=== PATIENT | male | born 1950 | race Caucasian/White ===

== ENCOUNTER → 2018-05-16 07:37 | Outpatient (CLI) | payer OTHER ==
[2010-03-26 04:15] VITALS: BMI 23.7
[~2018-05-16 07:37] MED LIST: ASPIRIN81 MG PO; BUSPAR5 MG PO; COREG 3.1253.125 MG PO; ENTRESTO 49 MG1 EACH PO; LASIX40 MG PO; LIPITOR40 MG PO; LISINOPRIL10 MG PO; PLAVIX75 MG PO; VITAMIN B COMPL1 TAB PO
[2018-07-18 21:20] VITALS: BMI 22.3
== END | disposition home or self-care (01) ==
LOC: D.US 07:37
DX: R10.11 Right upper quadrant pain (principal); R10.31 Right lower quadrant pain

== ENCOUNTER → 2018-05-29 08:08 | Outpatient (CLI) | payer OTHER ==
[2010-03-26 04:15] VITALS: BMI 23.7
[2018-07-18 21:20] VITALS: BMI 22.3
== END | disposition home or self-care (01) ==
LOC: D.NM 08:08
DX: R10.11 Right upper quadrant pain (principal)

== ENCOUNTER 2018-06-10 06:30 | Day surgery (SDC) | payer OTHER ==
[2018-06-07 11:17] LABS: HEMATOCRIT 47.8 % (42.0-54.0); HEMOGLOBIN 16.4 g/dL (13.5-17.5); MCH 29.8 pg (26.0-34.0); MCHC 34.3 g/dL (31.0-37.0); MCV 86.9 fL (80.0-100.0); MEAN PLATELET VOLUME 10.8 fL (7.4-10.4); RBC 5.5 10x6/uL (4.20-6.10); RDW 14.9 % (11.5-14.5); WBC 8.7 10x3/uL (4.8-10.8)
[~2018-06-10] VITALS: Ht 180.3 cm; Wt 76.4 kg
--- NOTE | ~2018-06-10 | DS ---
PATIENT:MONIKA MORAN :50 MEDICAL RECORD: [id number] DISCHARGE SUMMARY ADMISSION DATE: 06/10/18 DISCHARGE DATE: 06/11/18 DIAGNOSES: 1. Shortness of breath, dyspnea on exertion. 2. Ischemic cardiomyopathy. 3. Congestive heart failure, chronic systolic dysfunction. 4. Unstable angina. 5. Coronary artery disease. 6. PTCA and stent of left circumflex and RCA this admission. HOSPITAL COURSE: Mr. Moran presents preop for a lap citlalli. He was found to have anginal symptomatology as well as shortness of breath. Underwent cardiac catheterization revealing ischemic cardiomyopathy, ejection fraction in the 20% range with severe 3-vessel coronary artery disease. Underwent successful PTCA and stent of the left circumflex and RCA. The LAD is not amenable to transcatheter revascularization. Discharged home with the addition of aspirin, Plavix, Coreg to his medical regimen. He will follow up with [facility] in 2-3 weeks. TRANSINT:[id number] Voice Confirmation ID: [id number] DOCUMENT ID: [id number] HAI LOWERY MD at 1752 CC: [id number] DICTATION DATE: 06/11/18 1114 HYDRODYNAMICS PROFESSOR: 06/11/18 1214 [facility] [place] 06/11/18 [id number] [place] [address]
--- NOTE | ~2018-06-10 | HEMODYNAMI ---
PATIENT:MONIKA MORAN MEDICAL RECORD: [id number] : 50 LOCATION:[place] ADMISSION DATE: 06/10/18 Generatedon:06/10/201811:11 Patient name: MONIKA MORAN Patient #: [id number] SSN: : Date of study: 06/10/2018 Page: Of Hemodynamic Procedure Report Patient Data Patient Demographics Procedure consent was obtained First Name: MONIKA Gender: Male Last Name: LUISA : 1950 [facility] Initial: L Age: 68 year(s) Patient #: [id number] Race: Unknown Additional ID: [id number] Contact details [address]: [address] [place] [address] State: [place] City: [place] Zip code: [address] Admission Admission Data Admission Date: 06/10/2018 Admission Time: 6:30 Admit Source: Other Procedure Procedure Types Cath Procedure Diagnostic Procedure LHC LHC w/Coronaries PCI Procedure Coronary Stent Coronary Stent Initial Procedure Description Procedure Date Procedure Date: 06/10/2018 Procedure Start Time: 10:52 Procedure End Time: 11:10 Procedure Staff Name Function Jero Wang MD Performing Physician Livier Roca RT Monitor Chicho Castillo RT Scrub Alireza Galvez RN Nurse Procedure Data Cath Procedure Fluoroscopy Diagnostic fluoroscopy Total fluoroscopy Time: 4.6 time: 4.6 min min Diagnostic fluoroscopy Total fluoroscopy dose: 240 dose: 240 mGy mGy Contrast Material Contrast Material Type Amount (ml) Isovue 300 124 Entry Location Entry Primary Successful Side Size Upsize Upsize Entry Closure Succes sful Closure Location (Fr) 1 (Fr) 2 (Fr) Remarks Device Remarks Radial Right 6 Fr Exoseal artery Short Estimated blood loss: 10 ml Diagnostic catheters Device Type Used For End Catheter Placement DIAGNOSTIC Lanse 110cm 5 Procedure Fr catheter ([id number]) Procedure Complications No complications Procedure Medications Medication Administration Route Dosage 0.9% NaCl I.V. 100 ml/hr Oxygen etCO2 Nasal cannula 2 l/min Heparin Flush Bag added to field 2 bags (1000units/500ml NS) Lidocaine 2% added to field 20 Radial Cocktail added to field 1 syringe (Verapomil 2mg/Nitro 400mcg/Heparin 1500units) Versed I.V. 1 mg Fentanyl I.V. 50 mcg Radial Cocktail I.A. 1 syringe (Verapomil 2mg/Nitro 400mcg/Heparin 1500units) Heparin Bolus I.V. 5000 units Integrilin (Bolus I.V. 6.8 ml 2mg/ml) Integrilin (Bolus wasted 3.2 ml 2mg/ml) Plavix P.O. 600 mg Hemodynamics Rest Heart Rate: 95 (bpm) Pressure Samples Time Site Value (mmHg) Purpose Heart Use Rate(bpm) 10:54 AO 114/31(63) Snapshot 95 Snapshots Pre Cath Intra NCS Post Cath Vital Signs Time Heart Resp SPO2 etCO2 NIBP (mmHg) Rhythm Pain Sedation Rate (ipm) (%) (mmHg) Status Level (bpm) 10:43:22 103 21 94 0 130/93(111) NSR 0 (11) 10(A) , No pain 10:47:28 101 24 95 0 120/86(101) NSR 0 (11) 10(A) , No pain 10:51:25 102 33 94 0 123/96(109) NSR 0 (11) 10(A) , No pain 10:55:33 100 19 94 0 115/74(94) NSR 0 (11) 9(A) , No pain 10:59:39 97 17 92 0 109/76(94) NSR 0 (11) 9(A) , No pain 11:03:43 94 15 94 0 113/76(88) NSR 0 (11) 9(A) , No pain 11:07:46 96 15 92 0 121/77(95) NSR 0 (11) 10(A) , No pain Medications Time Medication Route Dose Verified Delivered Reason Not es Effectiveness by by 10:35:24 0.9% NaCl I.V. 100 Alireza Alireza Per physician ml/hr Leonor Galvez RN RN 10:35:33 Oxygen etCO2 2 l/min Alireza Alireza Per physician Nasal Leonor Galvez cannula RN RN 10:35:47 Heparin Flush added 2 bags Alireza Alireza used for Bag to Leonor Galvez procedure (1000units/500ml field RN RN NS) 10:36:00 Lidocaine 2% added 20ml Alireza Alireza for local to vial Leonor Galvez anesthetic RN RN 10:36:13 Radial Cocktail added 1 Alireza Alireza used for (Verapomil to syringe Leonor Galvez procedure 2mg/Nitro RN RN 400mcg/Heparin 1500units) 10:51:07 Versed I.V. 1 mg Alireza Alireza for sedation Leonor Galvez RN RN 10:51:17 Fentanyl I.V. 50 mcg Alireza Alireza for sedation Leonor Galvez RN RN 10:53:53 Radial Cocktail I.A. 1 Alireza Jero for (Verapomil syringe Leonor Taunagi MD vasodilation 2mg/Nitro RN 400mcg/Heparin 1500units) 11:00:51 Heparin Bolus I.V. 5000 Alireza Alireza for units Leonor Galvez anticoagulation RN RN 11:01:11 Integrilin I.V. 6.8 ml Alireza Alireza for (Bolus 2mg/ml) Leonor Galvez antiplatelet RN RN therapy 11:02:49 Integrilin wasted 3.2ml Alireza Alireza to sharp's (Bolus 2mg/ml) Leonor Galvez RN RN 11:10:39 Plavix P.O. 600 mg Alireza Alireza for Leonor Galvez antiplatelet RN RN therapy Procedure Log Time Note 10:10:32 Informed consent obtained and on chart 10:10:35 Admit Source: Other 10:10:47 Diagnostic Cath status Elective 10:10:48 Chicho Castillo RT(R) sent for patient. Start room use. 10:10:49 Time tracking: Regular hours (M-F 7:00 - 5:00) 10:10:52 Plan of Care:Hemodynamics will remain stable., Cardiac rhythm will remain stable., Comfort level will be maintained., Respiratory function will remain adequate., Patient/ family verbilizes understanding of procedure., Procedure tolerated without complication., Recovers from procedure without complications.. 10:26:44 Patient received from Outpatients to CCL 3 Alert and oriented. Tansferred to table in Supine position. 10:26:45 Warm blankets applied, and imtiaz hugger turned on for patient comfort. 10:26:46 Correct patient and procedure confirmed by team. 10:26:46 ECG and BP/O2 sat monitors applied to patient. 10:26:54 H&P Date Dictated: 06/04/2018 Within 30 days and on chart.. 10:26:56 Pre-procedure instructions explained to patient. 10:26:57 Pre-op teaching completed and patient verbalized understanding. 10:26:58 Family in waiting room. 10:27:00 Patient NPO since Midnight. 10:35:24 0.9% NaCl 100 ml/hr I.V. was administered by Alireza Galvez RN; Per physician; 10:35:33 Oxygen 2 l/min etCO2 Nasal cannula was administered by Alireza Galvez RN; Per physician; 10:35:47 Heparin Flush Bag (1000units/500ml NS) 2 bags added to field was administered by Alireza Galvez RN; used for procedure; 10:36:00 Lidocaine 2% 20ml vial added to field was administered by Alireza Galvez RN; for local anesthetic; 10:36:13 Radial Cocktail (Verapomil 2mg/Nitro 400mcg/Heparin 1500units) 1 syringe added to field was administered by Alireza Galvez RN; used for procedure; 10:37:20 Is patient on blood thinner?No 10:37:27 Patient diabetic? No. 10:37:34 Snore? Yes 10:37:43 Sleep apnea? No 10:37:48 Airway obstruction? Yes Asthma 10:37:54 Dentures? No ? 10:38:01 Patient pain scale 0/10 ?. 10:38:08 IV patent on arrival in left forearm with 0.9% NaCl at KVO. 10:38:13 Lab results completed and on chart. 10:38:19 Right Radial & Right Groin area was prepped with chlora-prep and draped in sterile fashion 10:38:20 Alarms reviewed by R. N. 10:38:21 Sharps counted by scrub and verified by R.N. 10:38:22 Physician paged 10:42:27 Vital chart was started 10:50:43 Physician arrived 10:50:44 --------ALL STOP TIME OUT------ 10:50:49 Final Timeout: patient, procedure, and site verified with staff and physician. All members of the team are in agreement. 10:50:53 Right Radial & Right Groin site verified by team. 10:50:56 Physical assessment completed. ASA score P 2 - A patient with mild systemic disease as per Jero Wang MD. 10:51:00 Sedation plan: IV Moderate Sedation Medication:Versed, Fentanyl 10:51:06 Use device set Radial Dx or PCI 10:51:07 Versed 1 mg I.V. was administered by Alireza Galvez RN; for sedation; 10:51:08 ACIST Syringe (37117) opened to sterile field. 10:51:08 Medline Cath Pack ([id number]) opened to sterile field. 10:51:09 Bag Decanter (2002S) opened to sterile field. 10:51:09 DIAGNOSTIC WIRE .035 260cm J wire (095826) opened to sterile field. 10:51:10 ACIST Hand Control (10995) opened to sterile field. 10:51:10 ACIST Manifold (01837) opened to sterile field. 10:51:11 Tegaderm 4 x 4 (1626W) opened to sterile field. 10:51:11 MBrace Wrist Support ([id number]) opened to sterile field. 10:51:12 NEEDLE Cook 21G 4cm Radial (X03124) opened to sterile field. 10:51:17 Fentanyl 50 mcg I.V. was administered by Alireza Galvez RN; for sedation; 10:51:18 SHEATH 6Fr Prelude Radial ([id number]) opened to sterile field. 10:51:57 Procedure started. 10:51:57 Full Disclosure recording started 10:52:40 Local anesthetic to right radial artery with Lidocaine 2% by Jero Wang MD.INITIAL ACCESS ONLY 10:53:28 A 6 Fr Short sheath was inserted into the Right Radial artery 10:53:48 A DIAGNOSTIC Lanse 110cm 5 Fr catheter (871646) was advanced over the wire and used for Procedure. 10:53:53 Radial Cocktail (Verapomil 2mg/Nitro 400mcg/Heparin 1500units) 1 syringe I.A. was administered by Jero Wang MD; for vasodilation; 10:54:02 Zero performed for pressure channel P1 10:54:34 LV angiography performed. 10:55:11 EF : 20 % 10:55:35 LCA angiography performed. 10:56:23 RCA angiography performed. 10:58:55 GUIDE 6FR AR 2.0 SH catheter ([id number]) opened to sterile field. 10:58:56 CHOICE PT Extra Support 182cm wire ([id number]) opened to sterile field. 10:58:57 INFLATOR Merit Ramya (HC4558) opened to sterile field. 10:59:01 Proceeding to intervention. 10:59:17 6 Fr AR2SH guide catheter was inserted over the wire 10:59:24 choice pt ex wire advanced. 11:00:51 Heparin Bolus 5000 units I.V. was administered by Alireza Galvez RN; for anticoagulation; 11:01:11 Integrilin (Bolus 2mg/ml) 6.8 ml I.V. was administered by Alireza Galvez RN; for antiplatelet therapy; 11:02:49 Integrilin (Bolus 2mg/ml) 3.2ml wasted was administered by Alireza Galvez RN; to sharp's; 11:02:53 CHOICE PT Extra Support 182cm wire ([id number]) opened to sterile field. 11:03:55 Place stent Inflation Number: 1 A INTEGRITY RX 2.5 x 26 stent ([id number]) was prepped and advanced across the Mid RCA. The stent was deployed at 15 CASIMIRO for 0:08 (min:sec). 11:04:40 Stent catheter was removed intact over wire. 11:05:56 Place stent Inflation Number: 1 A INTEGRITY RX 2.75 x 26 stent ([id number]) was prepped and advanced across the Prox RCA. The stent was deployed at 17 CASIMIRO for 0:06 (min:sec). 11:06:32 Inflation number: 2 The stent balloon was then re-inflated across the Prox RCA to 21 CASIMIRO for 0:06 (min:sec). 11:06:55 Wire removed. 11:06:56 Guide catheter removed. 11:07:16 TR BAND Standard (QEV51HBD) opened to sterile field. 11:07:31 Sheath removed intact; hemostasis achieved with Exoseal to the Right Radial artery. 11:07:33 Procedure ended.(Physican Out) 11:07:48 Fluoroscopy time 04.60 minutes. 11:07:54 Fluoroscopy dose: 240 mGy 11:07:54 Flurop Dose total: 240 11:07:58 Contrast amount:Isovue 300 124ml. 11:08:00 Sharps counted by scrub and verified by R.N. 11:08:04 TR band inflated with 10cc of air. 11:08:06 Insertion/operative site no bleeding no hematoma. 11:08:10 Post Procedure Pulses reassessed and unchanged 11:08:23 Post-procedure physical assessment completed. ASA score P 2 - A patient with mild systemic disease as per Jero Wang MD. 11:08:28 Post procedure rhythm: sinus rhythm 11:08:31 Estimated blood loss: 10 ml 11:08:34 Post procedure instruction explained to patient.Patient verbalizes understanding. 11:08:56 Procedure type changed to Cath procedure, Diagnostic procedure, LHC, LHC w/Coronaries, PCI procedure, Coronary Stent, Coronary Stent Initial 11:08:58 Procedure and supply charges have been captured, reviewed, submitted and are correct. 11:10:08 Procedure Complication : No complications 11:10:11 Vital chart was stopped 11:10:12 See physician's report for complete and final results. 11:10:13 Report given to Pre/Post Procedure Room. 11:10:17 Patient transfered to Pre/Post Procedure Room with Stretcher. 11:10:19 Procedure ended. 11:10:19 Full Disclosure recording stopped 11:10:21 End room use (Document Last) 11:10:39 Plavix 600 mg P.O. was administered by Alireza Galvez RN; for antiplatelet therapy; 11:10:40 ACC-PCI Only Patient was given prescriptions, or instructed by Jero Wang MD to start/continue the following medications upon discharge: Plavix Intervention Summary Intervention Notes Time ActionType Lesion and Equipment Action# Pressure Duration Attributes Used 11:03:55 Place stent Mid RCA INTEGRITY RX 1 15 00:08 2.5 x 26 stent ([id number]) 11:05:56 Place stent Prox RCA INTEGRITY RX 1 17 00:06 2.75 x 26 stent ([id number]) 11:06:32 Reinflate Prox RCA INTEGRITY RX 2 21 00:06 stent 2.75 x 26 balloon stent ([id number]) Device Usage Item Name Manufacture Quantity Catalog Number Hospital Part Current M inimal Lot# / Charge Number Stock Stock Serial# Code ACIST Syringe Acist 1 90345 897440 587535 287989 2 0 (63581) Advanced Cooling Therapy Medline Cath Cardinal 1 [id number] 832785 19029 996663 5 Pack Health ([id number]) Bag Decanter Microtek 1 [id number] 48758 723959 5 (2001S) Medical Inc. DIAGNOSTIC WIRE St Ricci 1 847839 786873 216888 864181 3 0 .035 260cm J wire (283780) ACIST Hand Acist 1 35566 660392 662629 027201 5 Control (50677) Medical Systems Inc ACIST Manifold Acist 1 42634 444331 347531 069788 5 (35129) Medical Systems Inc Tegaderm 4 x 4 3M 1 1626W 426538 124684 622277 5 (1626W) MBrace Wrist Advanced 1 140-0250-00 909825 76688 188630 5 Support Vascular ([id number]) Dynamics NEEDLE Cook 21G Cook Medical 1 Z98060 119093 989832 623930 5 4cm Radial (P51284) SHEATH 6Fr Merit 1 [id number] 091621 292156 174272 5 Prelude Radial Medical ([id number]) DIAGNOSTIC Terumo 1 40-7075 745413 235858 435603 5 Lanse 110cm 5 Fr catheter (598426) GUIDE 6FR AR Medtronic 1 [id number] 866862 30232 087421 1 2.0 SH catheter ([id number]) CHOICE PT Extra [place] 2 [id number] 968110 109554 445428 5 Support 182cm Scientific wire ([id number]) INFLATOR Merit Merit 1 FZ5850 115646 220143 150643 1 5 SicuboalSuja Juice (IK5634) INTEGRITY RX Medtronic 1 [id number] 659421 161857 327658 5 [id number] 2.5 x 26 stent ([id number]) INTEGRITY RX Medtronic 1 [id number] 537246 154877 535781 5 [id number] 2.75 x 26 stent ([id number]) TR BAND Terumo 1 [id number] 629730 278673 624425 4 0 Standard ([id number]) Signature Audit [place] Stage Time Signature Unsigned Intra-Procedure 06/10/2018 Livier Roca 11:11:01 AM RT(R) Signatures Monitor : Livier Roca Signature : RT Date : Time : [address] [place] [address]
--- NOTE | ~2018-06-10 | CN ---
PATIENT NAME:MONIKA MORAN MEDICAL RECORD: [id number] : 50 LOCATION:[address] ADMIT DATE: ACCOUNT: [id number] CONSULTING PHYSICIAN: HAI LOWERY MD REFERRING PHYSICIAN: HAI LOWERY MD DATE OF CONSULTATION: 06/10/2018 ADMITTING DIAGNOSES: 1. Chest pain compatible with angina. 2. Abnormal ECG. 3. Hypertension. 4. Preoperative evaluation. HISTORY OF PRESENT ILLNESS: This is a gentleman who has been having chest pain, chest pressure, chest heaviness as well as increasing shortness of breath. This has been going on for 2 months, but really increasing over the past 2 weeks. He is here for a laparoscopic cholecystectomy. His EKG is abnormal suggestive of ongoing resting ischemia. PHYSICAL EXAMINATION: GENERAL APPEARANCE: Well-nourished, well-developed, appears stated age. Level of distress, comfortable. PSYCHIATRIC: Mental status, alert, normal affect. Orientation, oriented to time, place and person. EYES: Lids and conjunctiva, noninjected. No discharge, no pallor. ENT: Lips, teeth, gums, normal dentition. Oropharynx, no cyanosis, no pallor. NECK: Carotid arteries, bilateral normal upstroke, no bruits, no thrills. JUGULAR VEINS: No jugular venous pressure or distention. CERVICAL LYMPH NODES: Nontender, nonenlarged. THYROID: Not enlarged. Nontender. No nodules. LUNGS: Respiratory effort, unlabored. CHEST: Normal curvature. No thoracic deformity. No chest wall tenderness. Percussion, resonant. Auscultation, clear. No wheezes, no rales, no rhonchi. CARDIOVASCULAR: Precordial exam, nondisplaced. No heaves or pericardial thrills. Rate and rhythm, regular. Heart sounds, normal S1, normal S2. No S3, no gallop, no rub. Systolic murmur, not heard. Diastolic murmur, not heard. EXTREMITIES: No cyanosis, no edema. Peripheral pulses, full and equal in all extremities, except as noted. No bruits appreciated. ABDOMEN: Soft, nondistended. Normal aorta. No bruit. Nontender. No masses. Liver, nontender, no hepatomegaly. Spleen, nontender, no splenomegaly. MUSCULOSKELETAL: No joint tenderness. No joint swelling. No erythema. NEUROLOGICAL: Normal gait, normal strength, normal tone. SKIN: Warm and dry. OVERALL IMPRESSION: Chest pain compatible with angina, abnormal ECG, shortness of breath, dyspnea on exertion, most likely has hemodynamically significant coronary artery disease. We will proceed with coronary angiography. Further care depends upon findings of the angiography. TRANSINT:[id number] Voice Confirmation ID: [id number] DOCUMENT ID: [id number] CONSULT REPORT [id number] MONIKA MORAN JEFFREY MD at 1109 CC: [id number] DICTATION DATE: 06/10/18922 APPLICATION CHEMIST: 06/10/18 1232 REG [facility] [address] [place] [address]
--- NOTE | ~2018-06-10 | HEMODYNAMI ---
PATIENT:MONIKA MORAN MEDICAL RECORD: [id number] : 50 LOCATION[facility] [id number] ADMISSION DATE: 06/10/18 Generatedon:06/11/201811:14 Patient name: MONIKA MORAN Patient #: [id number] SSN: : Date of study: 06/11/2018 Page: Of Hemodynamic Procedure Report Patient Data Patient Demographics Procedure consent was obtained First Name: MONIKA Gender: Male Last Name: LUISA : 1950 [facility] Initial: L Age: 68 year(s) Patient #: [id number] Race: Unknown Additional ID: [id number] Contact details [address]: [address] [place] [address] State: [place] City: [place] Zip code: [address] Past Medical History Allergies: No known allergies Admission Admission Data Admission Date: 06/10/2018 Admission Time: 6:30 Admit Source: Other Room #: D.2121 Lab Results Lab Result Date: 06/11/2018 Lab Result Time: 8:05 Biochemistry Name Units Result Min Max BUN mg/dl 13 --(--*-)-- 7 18 Creatinine mg/dl 1 --(--*-)-- 0.6 1.3 CBC Name Units Result Min Max Hematocrit % 47.8 --(-*--)-- 42 54 Hemoglobin g/dl 16.4 --(--*-)-- 13.5 17.5 Procedure Procedure Types Cath Procedure Diagnostic Procedure Sedation Charges Moderate Sedation up to 15 minutes PCI Procedure Coronary Stent Coronary Stent Initial PTCA PTCA Additional Procedure Description Procedure Date Procedure Date: 06/11/2018 Procedure Start Time: 10:52 Procedure End Time: 11:10 Procedure Staff Name Function Jero Wang MD Performing Physician Livier Roca RT Scrub Chicho Castillo RT Monitor Dwight Correa RN Nurse Procedure Data Cath Procedure Fluoroscopy Diagnostic fluoroscopy Total fluoroscopy Time: 5 time: 5 min min Diagnostic fluoroscopy Total fluoroscopy dose: dose: 448.49 mGy 448.49 mGy Contrast Material Contrast Material Type Amount (ml) Isovue 300 91 Entry Location Entry Primary Successful Side Size Upsize Upsize Entry Closure Succes sful Closure Location (Fr) 1 (Fr) 2 (Fr) Remarks Device Remarks Femoral Right 6 Fr Exoseal artery Short Estimated blood loss: 10 ml Procedure Complications No complications Procedure Medications Medication Administration Route Dosage Oxygen etCO2 Nasal cannula 2 l/min Heparin Flush Bag added to field 2 bags (1000units/500ml NS) 0.9% NaCl I.V. 100 ml/hr Fentanyl I.V. 50 mcg Versed I.V. 1 mg Fentanyl I.V. 50 mcg Versed I.V. 1 mg Heparin Bolus I.V. 4000 units Hemodynamics Rest HGB: 16.4 (g/dl) Heart Rate: 102 (bpm) Snapshots Pre Cath Intra NCS Post Cath Vital Signs Time Heart Resp SPO2 etCO2 NIBP (mmHg) Rhythm Pain Sedation Rate (ipm) (%) (mmHg) Status Level (bpm) 10:39:48 102 16 100 12.7 121/85(96) NSR 0 (11) 10(A) , No pain 10:43:54 102 17 96 14.2 141/106(126) NSR 0 (11) 10(A) , No pain 10:48:06 96 19 94 0 121/97(107) NSR 0 (11) 10(A) , No pain 10:52:12 101 16 96 16.5 140/100(124) NSR 0 (11) 10(A) , No pain 10:56:26 94 16 97 0 120/93(102) NSR 0 (11) 9(A) , No pain 11:00:31 99 16 96 16.5 132/100(118) NSR 0 (11) 9(A) , No pain 11:04:41 97 16 94 18 117/92(103) NSR 0 (11) 9(A) , No pain 11:08:49 95 16 96 0 130/85(97) NSR 0 (11) 9(A) , No pain 11:13:21 98 16 91 16.5 126/95(114) NSR 0 (11) 9(A) , No pain Medications Time Medication Route Dose Verified Delivered Reason Notes Effectiveness by by 10:41:34 Oxygen etCO2 2 Jero Quintanilla Per physician Nasal l/min Felipe Correa RN cannula 10:41:44 Heparin Flush added 2 Jero Quintanilla used for Bag to bags Felipe Correa RN procedure (1000units/500ml field NS) 10:41:53 0.9% NaCl I.V. 100 Jero Quintanilla Per physician ml/hr Felipe Correa RN 10:47:21 Fentanyl I.V. 50 Jero Dwight for sedation mcg Felipe Correa RN 10:47:27 Versed I.V. 1 mg Jero Quintanilla for sedation Felipe Correa RN 10:52:55 Fentanyl I.V. 50 Jero Quintanilla for sedation mcg Felipe Correa RN 10:52:57 Versed I.V. 1 mg Jero Quintanilla for sedation Felipe Correa RN 10:56:03 Heparin Bolus I.V. 4000 Jero Dwight for units Felipe Correa RN anticoagulation Procedure Log Time Note 10:09:35 Diagnostic Cath status Elective 10:09:38 Dwight Correa RN sent for patient. Start room use. 10:09:39 Time tracking: Regular hours (M-F 7:00 - 5:00) 10:09:46 Plan of Care:Hemodynamics will remain stable., Cardiac rhythm will remain stable., Comfort level will be maintained., Respiratory function will remain adequate., Patient/ family verbilizes understanding of procedure., Procedure tolerated without complication., Recovers from procedure without complications.. 10:31:54 Patient received from PCU to CCL 3 Alert and oriented. Tansferred to table in Supine position. 10:31:55 Warm blankets applied, and imtiaz hugger turned on for patient comfort. 10:31:55 Correct patient and procedure confirmed by team. 10:31:57 Signed procedure consent form obtained from patient. 10:31:58 ECG and BP/O2 sat monitors applied to patient. 10:38:36 Vital chart was started 10:40:00 Baseline sample Acquired. 10:41:02 Rhythm: sinus tachycardia 10:41:03 Full Disclosure recording started 10:41:34 Oxygen 2 l/min etCO2 Nasal cannula was administered by Dwight Correa RN; Per physician; 10:41:34 H&P Date Dictated: 06/10/2018 Within 30 days and on chart.. 10:41:35 Pre-procedure instructions explained to patient. 10:41:35 Pre-op teaching completed and patient verbalized understanding. 10:41:37 Family in patients room. 10:41:44 Heparin Flush Bag (1000units/500ml NS) 2 bags added to field was administered by Dwight Correa RN; used for procedure; 10:41:53 0.9% NaCl 100 ml/hr I.V. was administered by Dwight Correa RN; Per physician; 10:42:39 Patient NPO since Midnight. 10:42:48 Patient allergic to No known allergies 10:42:49 Is the patient allergic to Iodine/contrast media? No. 10:43:11 Is patient on blood thinner?Yes 10:43:13 Patient diabetic? No. 10:43:16 Previous problem with sedation/anesthesia? No ? 10:43:17 Snore? Yes 10:43:17 Sleep apnea? Yes 10:43:18 Deviated septum? No 10:43:19 Opens mouth fully? Yes 10:43:19 Sticks out tongue? Yes 10:43:23 Airway obstruction? Yes asthma 10:43:26 Dentures? No ? 10:43:52 Pre procedure: right dorsailis pedis pulse 2+ Normal; easily identifiable; not easily obliterated 10:43:54 Patient pain scale 0/10 ?. 10:43:59 IV patent on arrival in left forearm with 0.9% NaCl at [facility]. 10:44:38 Lab Result : BUN 13 mg/dl 10:44:38 Lab Result : Hemoglobin 16.4 g/dl 10:44:38 Lab Result : Creatinine 1 mg/dl 10:44:38 Lab Result : Hematocrit 47.8 % 10:44:40 Lab results completed and on chart. 10:44:44 Right groin area was prepped with chlora-prep and draped in sterile fashion 10:44:44 Alarms reviewed by R. N. 10:44:45 Sharps counted by scrub and verified by R.N. 10:44:55 ACIST Syringe (31037) opened to sterile field. 10:44:56 Bag Decanter (2002) opened to sterile field. 10:44:56 Medline Cath Pack ([id number]) opened to sterile field. 10:44:57 ACIST Hand Control (94330) opened to sterile field. 10:44:57 ACIST Manifold (62883) opened to sterile field. 10:44:58 Tegaderm 4 x 4 (1626W) opened to sterile field. 10:45:01 DIAGNOSTIC WIRE .035 260cm J wire (552841) opened to sterile field. 10:46:10 SHEATH Prelude 6Fr 0.035 ([id number]-9W-65-035) opened to sterile field. 10:46:11 CHOICE PT Extra Support 182cm wire ([id number]) opened to sterile field. 10:46:11 INFLATOR Merit BasixCompak (NM9781) opened to sterile field. 10:46:14 Physician arrived 10:46:14 --------ALL STOP TIME OUT------ 10:46:14 Final Timeout: patient, procedure, and site verified with staff and physician. All members of the team are in agreement. 10:46:16 Right groin site verified by team. 10:46:18 Physical assessment completed. ASA score P 2 - A patient with mild systemic disease as per Jero Wang MD. 10:46:22 Sedation plan: IV Moderate Sedation Medication:Versed, Fentanyl 10:47:21 Fentanyl 50 mcg I.V. was administered by Dwight Correa RN; for sedation; 10:47:27 Versed 1 mg I.V. was administered by Dwight Correa RN; for sedation; 10:49:31 Zero performed for pressure channel P1 10:52:07 Procedure started. 10:52:09 Local anesthetic to right femoral artery with Lidocaine 2% by Jero Wang MD.INITIAL ACCESS ONLY 10:52:21 A 6 Fr Short sheath was inserted into the Right Femoral artery 10:52:34 6 Fr xb 4 guide catheter was inserted over the wire 10:52:55 Fentanyl 50 mcg I.V. was administered by Dwight Correa RN; for sedation; 10:52:57 Versed 1 mg I.V. was administered by Dwight Correa RN; for sedation; 10:55:15 GUIDE 6FR XB 4.0 catheter ([id number]) opened to sterile field. 10:55:28 choice pt es wire advanced. 10:56:00 Wire advanced across lesion. 10:56:03 Heparin Bolus 4000 units I.V. was administered by Dwight Correa RN; for anticoagulation; 10:59:11 Inflate balloon Inflation number: 1 A EUPHORA 3.0 x 20 Balloon ([id number]) was prepped and advanced across the Mid CX, then inflated to 11 CASIMIRO for 0:10 (min:sec). 10:59:35 Inflation number: 2 The EUPHORA 3.0 x 20 Balloon ([id number]) was reinflated across the Mid CX, to 11 CASIMIRO for 0:10 (min:sec). 10:59:41 Balloon removed over the wire. 11:02:11 Place stent Inflation Number: 3 A INTEGRITY RX 3.0 x 30 stent ([id number]) was prepped and advanced across the Mid CX. The stent was deployed at 17 CASIMIRO for 0:10 (min:sec). 11:03:30 Wire redirected to cx om. 11:03:33 Stent catheter was removed intact over wire. 11:03:35 Wire removed. damaged. 11:03:42 CHOICE PT Extra Support 182cm wire ([id number]) opened to sterile field. 11:03:52 choice pt es wire advanced. 11:03:53 Wire advanced across lesion. 11:05:12 Inflate balloon Inflation number: 1 A EUPHORA 2.0 x 12 Balloon ([id number]) was prepped and advanced across the 1st Ob Cristy, then inflated to 11 CASIMIRO for 0:10 (min:sec). 11:05:16 Inflation number: 2 The EUPHORA 2.0 x 12 Balloon ([id number]) was reinflated across the 1st Ob Cristy, to 11 CASIMIRO for 0:10 (min:sec). 11:06:09 Wire redirected to cx. 11:06:12 Inflation number: 4 The EUPHORA 2.0 x 12 Balloon ([id number]) was reinflated across the Mid CX, to 11 CASIMIRO for 0:10 (min:sec). 11:06:19 Balloon removed over the wire. 11:06:20 Wire removed. 11:06:21 Guide catheter removed. 11:06:26 EXOSEAL 6Fr (EX600) opened to sterile field. 11:06:33 Sheath removed intact; hemostasis achieved with Exoseal to the Right Femoral artery. 11:06:35 Procedure ended.(Physican Out) 11:08:02 Fluoroscopy time 05.00 minutes. 11:08:08 Flurop Dose total: 448.49 11:08:08 Fluoroscopy dose: 448.49 mGy 11:08:11 Contrast amount:Isovue 300 91ml. 11:08:12 Sharps counted by scrub and verified by R.N. 11:08:14 Insertion/operative site no bleeding no hematoma. 11:08:16 Post-op/insertion site Right Femoral artery dressed using a 4 x 4 and Tegaderm. 11:08:19 Post right femoral artery:stable, soft, clean and dry 11:08:21 Post Procedure Pulses reassessed and unchanged 11:08:23 Post-procedure physical assessment completed. ASA score P 2 - A patient with mild systemic disease as per Jero Wang MD. 11:08:27 Post procedure rhythm: unchanged. 11:09:35 Estimated blood loss: 10 ml 11:09:36 Post procedure instruction explained to patient.Patient verbalizes understanding. 11:09:36 Patient needs reinforcement of post procedure teaching. 11:09:49 Procedure type changed to Cath procedure, Diagnostic procedure, Sedation Charges, Moderate Sedation up to 15 minutes, PCI procedure, Coronary Stent, Coronary Stent Initial, PTCA, PTCA Additional 11:10:08 Procedure and supply charges have been captured, reviewed, submitted and are correct. 11:10:10 Procedure Complication : No complications 11:10:12 Vital chart was stopped 11:10:12 See physician's report for complete and final results. 11:10:13 Report given to Pre/Post Procedure Room. 11:10:16 Patient transfered to Pre/Post Procedure Room with Stretcher. 11:10:17 Procedure ended. 11:10:17 Full Disclosure recording stopped 11:10:21 End room use (Document Last) Intervention Summary Intervention Notes Time ActionType Lesion and Equipment Action# Pressure Duration Attributes Used 10:59:11 Inflate Mid CX EUPHORA 3.0 1 11 00:10 balloon x 20 Balloon ([id number]) 10:59:35 Reinflate Mid CX EUPHORA 3.0 2 11 00:10 balloon x 20 Balloon ([id number]) 11:02:11 Place stent Mid CX INTEGRITY RX 3 17 00:10 3.0 x 30 stent ([id number]) 11:05:12 Inflate 1st Ob Cristy EUPHORA 2.0 1 11 00:10 balloon x 12 Balloon ([id number]) 11:05:16 Reinflate 1st Ob Cristy EUPHORA 2.0 2 11 00:10 balloon x 12 Balloon ([id number]) 11:06:12 Reinflate Mid CX EUPHORA 2.0 4 11 00:10 balloon x 12 Balloon ([id number]) Device Usage Item Name Manufacture Quantity Catalog Number Hospital Part Current Minimal Lot# / Charge Number Stock Stock Serial# Code ACIST Syringe Acist 1 18656 525139 033827 [id number] 20 (79536) [employer] Bag Decanter Microtek 1 2001S 123450 53392 078641 5 () Medical Inc. Medline Cath Cardinal 1 [id number] 173033 31665 398125 5 Pack Health ([id number]) ACIST Hand Acist 1 93986 677163 590780 046981 5 Control (26699) [employer] Systems Inc ACIST Manifold Acist 1 31425 357302 312498 748279 5 (89074) [employer] Inc Tegaderm 4 x 4 3M 1 1626W 142847 058937 187018 5 (1626W) DIAGNOSTIC WIRE St Ricci 1 855262 263961 635937 620037 30 .035 260cm J wire (879100) SHEATH Prelude Merit 1 QUT-2Z-87-35 534424 8564146 107495 5 6Fr 0.035 Medical (NZW-3I-49-035) CHOICE PT Extra [place] 2 [id number] 256512 122396 971245 5 Support 182cm Scientific wire ([id number]) INFLATOR Merit Merit 1 AA4601 597860 663661 337950 15 [facility]FCV Holdings[facility] EdeniQ (FH5182) GUIDE 6FR XB Cardinal 1 [id number] 355574 638954 610403 2 4.0 catheter Health ([id number]) EUPHORA 3.0 x Medtronic 1 [id number] 052519 137221 128750 5 [id number] 20 Balloon ([id number]) INTEGRITY RX Medtronic 1 [id number] 076743 261870 998646 5 [id number] 3.0 x 30 stent ([id number]) EUPHORA 2.0 x Medtronic 1 [id number] 716380 233162 248864 5 [id number] 12 Balloon ([id number]) EXOSEAL 6Fr Cardinal 1 EX600 049312 853247 620670 10 (EX600) Health Signature Audit Thornton Stage Time Signature Unsigned Intra-Procedure 06/11/2018 Chicho Castillo 11:14:17 AM RT(R) Signatures Monitor : Chicho Castillo RT Signature : Date : Time : [address] [address]
--- NOTE | ~2018-06-10 | OP ---
PATIENT NAME: MONIKA MORAN MEDICAL RECORD: [id number] :50 LOCATION:D.OPS ADMISSION DATE: SURGEON: HAI LOWERY MD DATE OF OPERATION: 06/10/2018 PROCEDURES: 1. PTCA stent RCA. 2. Left heart catheterization. 3. Selective coronary angiography. 4. Left ventriculogram. INDICATION: Angina and coronary artery disease. PROCEDURE IN DETAIL: After informed consent was obtained and after a detailed description of the risks, benefits as well as alternative therapies, the patient elected to proceed with angiogram and angioplasty. The right radial area was prepped and draped in normal sterile fashion. Right radial artery was cannulated via modified Seldinger technique with placement of 6-Macedonian sheath. All catheters exchanged through this sheath. FINDINGS: The left ventriculogram was performed in standard 30-degree WILSON view reveals global hypokinesis throughout all segments. Overall ejection fraction estimated 20%. SELECTIVE CORONARY ANGIOGRAPHY: 1. Left main is with no significant angiographic disease. 2. Left anterior descending is totally occluded in the proximal vessel. Distal LAD fills via left to left collaterals. This does not appear to be amenable to transcatheter revascularization. 3. The left circumflex has at least 2 areas of 80% to 90% stenosis in the mid vessel. 4. The right coronary artery has multiple areas of 80% to 90% stenosis proximally. PTCA STENT OF THE RCA: Stents used were 2.5 x 26 and 2.75 x26 Integrity stents. Result was 0% residual stenosis. OVERALL IMPRESSION: Successful percutaneous transluminal coronary angioplasty stent of the right coronary artery going from multiple areas of 80% to 90% stenosis to 0% residual. PLAN: PTCA stent of the left circumflex in the near future. TRANSINT:[id number] Voice Confirmation ID: [id number] DOCUMENT ID: [id number] HAI LOWERY MD at 1752 CC: [id number] DICTATION DATE: 06/10/18 1112 [facility]URNER: 06/10/18 1246 [facility] 06/11/[address] [address]
--- NOTE | ~2018-06-10 | OP ---
PATIENT NAME: MONIKA MORAN MEDICAL RECORD: [id number] :50 LOCATION:[facility] ADMISSION DATE: SURGEON: HAI LOWERY MD DATE OF OPERATION: 06/11/2018 PROCEDURES: 1. PTCA stent left circumflex. 2. Selective coronary angiography. INDICATION: Angina and coronary artery disease. PROCEDURE IN DETAIL: After informed consent was obtained and after a detailed description of the risks, benefits as well as alternative therapies, the patient elected to proceed with angiogram and angioplasty. The right femoral area was prepped and draped in normal sterile fashion. The right femoral artery was cannulated via modified Seldinger technique with placement of 6-Lao sheath. All catheters exchanged through this sheath. FINDINGS: The left circumflex has a long area of 80% and 90% stenosis mid vessel. This was addressed with a 3.0 x 30 mm Integrity stent. This caused plaque shift into the first obtuse marginal. This was ballooned with a 2.0 balloon. Result was 0% residual stenosis. OVERALL IMPRESSION: Successful percutaneous transluminal coronary angioplasty stent of the left circumflex going from 90% initial stenosis to 0% residual. TRANSINT:[id number] Voice Confirmation ID: [id number] DOCUMENT ID: [id number] HAI LOWERY MD at 1752 CC: [id number] DICTATION DATE: 06/11/18 1115 LEAD PASTOR: 06/11/[address] [facility] 06/11/18 [place] [address]
[~2018-06-10 06:30] MED LIST changes: -ASPIRIN81 MG PO; -BUSPAR5 MG PO; -COREG 3.1253.125 MG PO; -ENTRESTO 49 MG1 EACH PO; -LASIX40 MG PO; -LIPITOR40 MG PO; -PLAVIX75 MG PO
[2018-06-10 08:24] LABS: ALBUMIN 3.3 g/dL (3.4-5.0); ALKALINE PHOSPHATASE 171 U/L (46-116); ALT (SGPT) 40 U/L (10-68); BILIRUBIN - TOTAL 1.14 mg/dL (0.2-1.3); CALC OSMOLALITY 272 mosm/kg (275-300); CALCIUM 9.2 mg/dL (8.5-10.1); CARBON DIOXIDE 28.7 mmol/L (21.0-32.0); CHLORIDE - SERUM 100 mmol/L (98-107); GLUCOSE 111 mg/dL (74-106); POTASSIUM - SERUM 4.8 mmol/L (3.5-5.1); PROTEIN - SERUM 7.2 g/dL (6.4-8.2); SODIUM 136 mmol/L (136-145); UREA NITROGEN 13 mg/dL (7-18); eGFR NON AFRICAN AMERICAN 79 mL/min (90-120)
[2018-06-10 09:42] VITALS: BP 133/84; BMI 826.3
[2018-06-10 23:37] VITALS: BP 122/84
[2018-06-11 03:44] VITALS: BP 122/84; Ht 180.3 cm; Wt 76.4 kg
[2018-06-11 05:00] VITALS: BP 130/95
[2018-06-11 07:39] VITALS: BP 128/85
[2018-06-11] MEDS ORDERED: COREG 3.1253.125 MG PO (11:35)
[2018-06-11] MEDS ORDERED: PLAVIX75 MG PO (11:35)
== END 2018-06-11 15:05 | disposition home or self-care (01) ==
LOC: D.M2 06:30 → D.OPS 06:30 → D.PAN 09:00 → D.M2 19:12 → D.CLR 06-11 11:19 → D.OPS 06-11 15:05
PROVIDERS: Anesthesiology
DX: I25.110 Atherosclerotic heart disease of native coronary artery with unstable angina pectoris (principal); I11.0 Hypertensive heart disease with heart failure; I50.22 Chronic systolic (congestive) heart failure; I25.5 Ischemic cardiomyopathy; Z01.812 Encounter for preprocedural laboratory examination

== ENCOUNTER 2018-07-18 21:15 | Emergency (ER) | payer OTHER ==
[~2018-07-18] VITALS: Ht 180.3 cm; Wt 72.7 kg
[~2018-07-18 21:15] MED LIST changes: +COREG 3.1253.125 MG PO; +PLAVIX75 MG PO
[2018-07-18 21:20] VITALS: Ht 180.3 cm; Wt 72.7 kg
[2018-07-18] MEDS ORDERED: BUSPAR5 MG PO (21:22)
[2018-07-18] MEDS ORDERED: LASIX40 MG PO (21:22)
[2018-07-18] MEDS ORDERED: LIPITOR40 MG PO (21:22)
[2018-07-18] MEDS ORDERED: ENTRESTO 49 MG1 EACH PO (21:22)
[2018-07-18] MEDS ORDERED: ASPIRIN81 MG PO (21:23)
[2018-07-18 21:51] LABS: BASOPHILS 0.3 % (0-2); EOSINOPHILS 3.5 % (0-7); HEMATOCRIT 46.8 % (42.0-54.0); HEMOGLOBIN 16.6 g/dL (13.5-17.5); IMMATURE GRANULOCYTES 0.1 % (0-5); LYMPHOCYTES 26.7 % (15-50); MCH 29.5 pg (26.0-34.0); MCHC 35.5 g/dL (31.0-37.0); MCV 83.1 fL (80.0-100.0); MEAN PLATELET VOLUME 11.1 fL (7.4-10.4); MONOCYTES 13.9 % (2-11); NEUTROPHILS 55.5 % (40-80); PLATELET COUNT 154 10x3/uL (130-400); RBC 5.63 10x6/uL (4.20-6.10); RDW 14.1 % (11.5-14.5); WBC 7.5 10x3/uL (4.8-10.8)
[2018-07-18 22:07] LABS: ALBUMIN 3.7 g/dL (3.4-5.0); ANION GAP 12.6 mmol/L (8-16); BILIRUBIN - TOTAL 0.46 mg/dL (0.2-1.3); CALCIUM 9.5 mg/dL (8.5-10.1); CARBON DIOXIDE 28.8 mmol/L (21.0-32.0); CREATININE - SERUM 1.4 mg/dL (0.6-1.3); POTASSIUM - SERUM 4.4 mmol/L (3.5-5.1); PROTEIN - SERUM 8.2 g/dL (6.4-8.2)
[2018-07-18 22:18] LABS: TROPONIN-I 0.017 ng/mL (0.000-0.060)
[2018-07-18 23:34] VITALS: BP 109/66
== END 2018-07-18 23:34 | disposition home or self-care (01) ==
LOC: D.ER 21:15
PROVIDERS: Family Medicine
DX: R07.89 Other chest pain (principal); R42 Dizziness and giddiness; I50.9 Heart failure, unspecified; F17.200 Nicotine dependence, unspecified, uncomplicated